=== PATIENT | male | born 1990 | race Caucasian/White ===

== ENCOUNTER 2020-09-24 11:36 | Outpatient (CLI) | payer OTHER, SELFPAY ==
[2020-09-28 13:02] LABS: SARS-CoV-2 RNA PCR Negative (Negative)
== END 2020-09-24 11:37 | disposition home or self-care (01) ==
LOC: CHSLAB 11:38
PROVIDERS: PCP Nurse Practitioner Family; Visit Provider Nurse Practitioner Family
DX: Z20.822 Contact with and (suspected) exposure to COVID-19 (principal)
CPT/HCPCS: C9803; U0003; U0005

== ENCOUNTER 2023-01-18 00:21 | Day surgery (SDC) | payer BC, SELFPAY ==
[2023-01-03 13:09] VITALS: BMI 27.3
--- NOTE | 2023-01-16 10:41 | SUR.PREOP ---
Patient called regarding upcoming procedure. Message left on patient's voicemail regarding preop instructions, appointment times, and procedure prep.
[2023-01-18 06:55] VITALS: BP 142/88; PULSE 91; RESP 18; TEMP 36.1; O2SAT 98; BMI 27.3
--- NOTE | 2023-01-18 07:06 | WPDANESEPPF ---
Anes - Initial Pre Proc Eval Procedure: Operation Date: 01/18/23 07:30 Proposed Procedures p Colonoscopy - Davey Jay DO Date/Time: 01/18/23 07:06 Surgeon: Davey Jay DO Pre Op Diagnosis: family hx of colon ca Patient Data Age: 32 Gender: M Height: 1.75 m Weight: 84 kg Allergies Allergy/AdvReac Type Severity Reaction Status Date / Time No Known Allergies Allergy Verified 01/18/23 07:05 Home Medications Medication Instructions Recorded Confirmed Type bupropion HCl 75 mg tablet 75 mg PO BID 09/05/22 01/03/23 History propranolol 10 mg tablet 10 mg PO TID PRN Anxiety 09/05/22 01/03/23 History lisinopril 10 1 tablet PO DAILY #90 tabs 10/27/22 01/03/23 Rx mg-hydrochlorothiazide 12.5 mg tablet Patient hx anesthesia problems: none Family hx anesthesia problems: none Results Review: All pre-operative results and documents have been reviewed as part of the pre-operative evaluation. [facility] Past Medical History Medical History (Updated 09/05/22 @ 09:02 by Pio Tucker DO) Essential (primary) hypertension Genital herpes in men Surgical History Surgical History No history of previous surgery Family History Family History Mother Diabetes mellitus Father Hypertension Social History Social History (Updated 09/05/22 @ 08:48 by Adriana Mello CMA) Smoking status: Never smoker Alcohol intake: current Alcohol use details: Rarely on social basisi Lack of Transportation: No Lack of Food: Never True Current Housing: I Have Housing Concerned About Future Housing: No Difficulty Paying Gas/Electric Bills: No Difficulty Paying for Meds: No Currently Unemployed: No Education: Bachelor's Degree Difficulty w/ Childcare or Family Care: No Living arrangements: with family Additional living arrangements comments: . 2 children Occupation/Education: occupation Additional occupation/education comments: Works for [employer] in [place]. Spiritual care concerns: No Anes - Eval Final PreProcedure Day of Procedure 01/18/23 07:06 Patient weight: normal Heart: regular rate and rhythm Lungs: clear to auscultation Airway: Mallampati scale class II Neurological: alert and oriented Last oral intake: >/= 8 hours ASA classification: II Emergent: no Anesthetic plan: proceed Anesthesia type and monitoring: general GIVS and standard monitoring Results Review: All pre-operative results and documents have been reviewed as part of the pre-operative evaluation. Informed Consent: The patient's anesthetic plan and its attendant risks and benefits were discussed with the patient/family/POA. Questions were solicited and answers provided to the satisfaction of the patient/family/POA.
--- NOTE | 2023-01-18 07:10 | P.PNAN_ITS ---
Anes - Initial Pre Proc Eval Procedure: Operation Date: 01/18/23 07:30 Proposed Procedures p Colonoscopy - Davey Jay DO Date/Time: 01/18/23 07:10 Surgeon: Davey Jay DO Pre Op Diagnosis: family hx of colon ca Patient Data Age: 32 Gender: M Height: 1.75 m Weight: 84 kg Last Vital Signs Temp 96.9 F L 01/18/23 06:55 Pulse 91 01/18/23 06:55 Resp 18 01/18/23 06:55 BP 142/88 H 01/18/23 06:55 Pulse Ox 98 01/18/23 06:55 O2 Del Method Room Air 01/18/23 06:55 Allergies Allergy/AdvReac Type Severity Reaction Status Date / Time No Known Allergies Allergy Verified 01/18/23 07:05 Home Medications Medication Instructions Recorded Confirmed Type bupropion HCl 75 mg tablet 75 mg PO BID 09/05/22 01/18/23 History propranolol 10 mg tablet 10 mg PO TID PRN Anxiety 09/05/22 01/18/23 History lisinopril 10 1 tablet PO DAILY #90 tabs 10/27/22 01/18/23 Rx mg-hydrochlorothiazide 12.5 mg tablet Patient hx anesthesia problems: none Family hx anesthesia problems: none Results Review: All pre-operative results and documents have been reviewed as part of the pre- operative evaluation. [facility] Past Medical History Medical History (Updated 09/05/22 @ 09:02 by Pio Tucker DO) Essential (primary) hypertension Genital herpes in men Surgical History Surgical History No history of previous surgery Family History Family History Mother Diabetes mellitus Father Hypertension Social History Social History (Updated 09/05/22 @ 08:48 by Adriana Mello CMA) Smoking status: Never smoker Alcohol intake: current Alcohol use details: Rarely on social basisi Lack of Transportation: No Lack of Food: Never True Current Housing: I Have Housing Concerned About Future Housing: No Difficulty Paying Gas/Electric Bills: No Difficulty Paying for Meds: No Currently Unemployed: No Education: Bachelor's Degree Difficulty w/ Childcare or Family Care: No Living arrangements: with family Additional living arrangements comments: . 2 children Occupation/Education: occupation Additional occupation/education comments: Works for [employer] in [place]. Spiritual care concerns: No Anes - Eval Final PreProcedure Day of Procedure 01/18/23 07:10 Patient weight: normal Heart: regular rate and rhythm Lungs: clear to auscultation Airway: Mallampati scale class II Neurological: alert and oriented Last oral intake: >/= 8 hours ASA classification: II Emergent: no Anesthetic plan: proceed Anesthesia type and monitoring: general GIVS and standard monitoring Results Review: All pre-operative results and documents have been reviewed as part of the pre- operative evaluation. Informed Consent: The patient's anesthetic plan and its attendant risks and benefits were discussed with the patient/family/POA. Questions were solicited and answers provided to the satisfaction of the patient/family/POA.
[2023-01-18] MEDS: LACTATED RINGERS 1,000 ML 150 ML IV CONT (07:15)
--- NOTE | 2023-01-18 07:30 | PM.IMHP ---
H&P: HPI History of Present Illness Date/Time: 01/18/23 07:30 Chief Complaint: Family history of colon cancer Narrative: This is a 32-year-old man who presents for colonoscopy. He has a half sister who was diagnosed with colon cancer at the age of 36. He also has a grandfather who was diagnosed with colon cancer in his 60s. He denies any hematochezia or melena. He denies any change in bowel habits. He has never had a colonoscopy before. Review of Systems Review of Systems: All systems reviewed & are unremarkable except as noted in HPI and below Constitutional: Constitutional: Denies chills, Denies fever(s), Denies headache(s) and Denies weight loss Eyes: Eyes: Denies change in vision ENT: Denies dizziness, Denies headache(s), Denies neck mass and Denies throat swelling Cardiovascular: Cardiovascular: Denies chest pain, Denies lightheadedness and Denies dyspnea Respiratory: Respiratory: Denies cough, Denies dyspnea and Denies wheezing Gastrointestinal: Gastrointestinal: Denies abdominal pain, Denies change in bowel habits, Denies nausea and Denies vomiting Genitourinary: Genitourinary: Denies hematuria and Denies dysuria Musculoskeletal: Musculoskeletal: Reports as per HPI Integumentary/Breasts: Skin/Breast: Reports as per HPI Neurologic: Denies dizziness and Denies headache(s) Allergic/Immunologic: Allergic/Immunologic: Denies throat swelling and Denies wheezing [facility] Past Medical History Medical History (Updated 09/05/22 @ 09:02 by Pio Tucker DO) Essential (primary) hypertension Genital herpes in men Surgical History Surgical History No history of previous surgery Family History Family History Mother Diabetes mellitus Father Hypertension Social History Social History (Updated 09/05/22 @ 08:48 by Adriana Mello CMA) Smoking status: Never smoker Alcohol intake: current Alcohol use details: Rarely on social basisi Lack of Transportation: No Lack of Food: Never True Current Housing: I Have Housing Concerned About Future Housing: No Difficulty Paying Gas/Electric Bills: No Difficulty Paying for Meds: No Currently Unemployed: No Education: Bachelor's Degree Difficulty w/ Childcare or Family Care: No Living arrangements: with family Additional living arrangements comments: . 2 children Occupation/Education: occupation Additional occupation/education comments: Works for [employer] in [place]. Spiritual care concerns: No Meds Home Medications and Allergies Home Medications Medication Instructions Recorded Confirmed Type bupropion HCl 75 mg tablet 75 mg PO BID 09/05/22 01/18/23 History propranolol 10 mg tablet 10 mg PO TID PRN Anxiety 09/05/22 01/18/23 History lisinopril 10 1 tablet PO DAILY #90 tabs 10/27/22 01/18/23 Rx mg-hydrochlorothiazide 12.5 mg tablet Allergies Allergy/AdvReac Type Severity Reaction Status Date / Time No Known Allergies Allergy Verified 01/18/23 07:05 Vital Signs Vital Signs - 24 hr 01/18/23 06:55 Temperature 36.1 C L Pulse Rate 91 Respiratory Rate 18 Blood Pressure 142/88 H Pulse Oximetry 98 Oxygen Delivery Room Air Exam Const: General: no acute distress and alert Orientation/consciousness: patient oriented x3 HENMT: Head: normocephalic and atraumatic Ears: hearing grossly normal bilaterally Face/Nose/Sinus: Normal nares present Mouth: Yes Normal oral and palatal mucosa present Eyes: Periorbital: periorbital findings normal Sclera: sclerae normal EOM: EOMs intact bilaterally Neck: Neck: normal visual inspection, no lymphadenopathy and trachea midline Chest: Chest palpation & inspection: normal inspection of the chest Resp: Effort & Inspection: normal respiratory effort Auscultation: clear to auscultation bilaterally Cardio: Jugular venous dis
[2023-01-18 07:54] VITALS: BP 87/45; PULSE 83; RESP 26; O2SAT 98
[2023-01-18 08:04] VITALS: BP 93/54; PULSE 80; RESP 16; O2SAT 99
[2023-01-18 08:14] VITALS: BP 112/75; PULSE 82; RESP 15; O2SAT 100
== END 2023-01-18 08:20 | disposition home or self-care (01) ==
PROVIDERS: PCP Family Medicine; Visit Provider Surgery
PROC: 0DJD8ZZ Inspection of Lower Intestinal Tract, Via Natural or Artificial Opening Endoscopic (ICD-10-PCS; CPT 45378; principal; 2023-01-18 07:30)
DX: Z12.11 Encounter for screening for malignant neoplasm of colon (principal); Z80.0 Family history of malignant neoplasm of digestive organs; I10 Essential (primary) hypertension
CPT/HCPCS: 45378; J7120

== ENCOUNTER 2024-10-21 16:41 | Outpatient (CLI) | payer BC, SELFPAY ==
[2024-10-23 17:01] LABS: TB Skin Test Erythema 0 mm; TB Skin Test Induration 0 mm (0-10); TB Skin Test Interpretation Negative (Negative); TB Skin Test Site Left Arm
== END 2024-10-21 16:42 | disposition home or self-care (01) ==
LOC: CHSLAB 16:42
PROVIDERS: PCP Family Medicine; Visit Provider Nurse Practitioner Family
DX: Z11.1 Encounter for screening for respiratory tuberculosis (principal)
CPT/HCPCS: 36415; 86580